=== PATIENT | male | born 1955 | race Caucasian/White ===

== ENCOUNTER 2021-12-13 11:41 | Inpatient (IN) | payer BC, OTHER ==
[2021-12-13] VITALS (40 sets, daily range): BP systolic 83–151; BP diastolic 46–97
[~2021-12-13] VITALS: Ht 182.9 cm; Wt 94.5 kg
[2021-12-13] MEDS ORDERED: NS 100ML 100 ML IV ONE (11:45)
[2021-12-13] MEDS ORDERED: ANCEF ONE (11:45)
[2021-12-13] MEDS ORDERED: HEPARIN ONE (11:52)
[2021-12-13] MEDS ORDERED: PLAVIX ONE (12:07)
[2021-12-13] MEDS ORDERED: VERSED ONE (12:16)
[2021-12-13] MEDS ORDERED: SUBLIMAZE ONE (12:16)
[2021-12-13] MEDS ORDERED: XYLOCAINE ONE (12:16)
--- NOTE | 2021-12-13 12:40 | NUR ---
ARRIVAL PATIENT ARRIVED ON UNIT VIA STRETCHER. RECEIVED REPORT FROM JOSE ROSA. ASSUME CARE AT THIS TIME
[2021-12-13 15:01] LABS: BASOPHIL % 0.2 % (0.0-0.2); LYMPHOCYTES # 0.83 10^3/uL1 (1.0-4.8); LYMPHOCYTES % 7.7 % (24.0-44.0); MEAN CORP HGB 28.8 pg (26-34); MONOCYTES # 0.1 10^3/uL (0.3-0.8); NEUTROPHIL # 9.8 10^3/uL (1.8-7.7); PLATELET COUNT 269 10^3/uL (150-400)
--- NOTE | 2021-12-13 15:02 | PCM.ECHO ---
APPROVED REPORT EXAM: Comprehensive 2D, Doppler, and color-flow Echocardiogram. Patient Location: IN-PATIENT Indications STEMI 2D Dimensions LVOT Diameter 2.27 (1.8-2.4cm) LVEF(%) 68.50 (>50%) M-Mode Dimensions RVDd 0.85 (2.1-3.2cm) Left Atrium(MM) 4.30 (2.5-4.0cm) IVSd 1.10 (0.7-1.1cm) Aortic Root 2.60 (2.2-3.7cm) LVDd 5.90 (4.0-5.6cm) Aortic Cusp Exc 1.75 (1.5-2.0cm) PWd 0.85 (0.7-1.1cm) MV EPSS 1.00 (<0.5cm) IVSs 1.55 cm FS (%) 31.35 % LVDs 4.05 (2.0-3.8cm) ESV(Teich) 72.11 ml PWs 1.30 cm LVEF(%) 58.43 (>50%) Volumes Biplane 2D LV Volumes Biplane 2D LA Volumes LVEDv A4C 102.76 mL LA ESV Index LVESv A4C 32.37 mL Aortic Valve AoV Peak Henri. 0.95 m/s AoV VTI 20.65 cm AO Peak GR. 3.60 mmHg AO Mean GR. 2.10 mmHg LVOT VTI 22.72 cm LVOT Peak Henri. 0.77 m/s KVNG(VTI)/BSA 4.45 cm2/m2 KVNG (VTI) 4.45 cm2 Mitral Valve MV E Velocity 0.90m/s MR Peak Gr. 3.30mmHg MV A Velocity 0.95m/s TDI Lateral E' P. V 0.11m/s Medial E' P. V 0.10m/s Pulmonary Valve PV Peak Velocity 0.60m/s PV Peak Grad. 1.55mmHg RVOT VTI 18.10cm Tricuspid Valve TR P. Velocity 2.15m/s RAP ESTIMATE 10.00mmHg TR Peak Gr. 19.15mmHg RVSP 29.15mmHg LEFT VENTRICLE The left ventricle is normal size. The left ventricular systolic function is normal. The left ventricular ejection fraction is within the normal range. There is normal left ventricular wall thickness. There is normal LV segmental wall motion. There is no ventricular septal defect visualized. No left ventricle thrombus noted on this study. LVEF is 60-65%. RIGHT VENTRICLE The right ventricle is normal size. The right ventricular systolic function is normal. There is normal right ventricular wall thickness. ATRIA The left atrium size is normal. The right atrium size is normal. The interatrial septum is intact with no evidence for an atrial septal defect. AORTIC VALVE The aortic valve is normal in structure. There is no aortic valvular stenosis. No aortic regurgitation is present. There is no aortic valvular vegetation. MITRAL VALVE The mitral valve is normal in structure. There is no mitral valve stenosis. Mild mitral regurgitation. There is no evidence of mitral valve vegetations. TRICUSPID VALVE The tricuspid valve is normal in structure. There is no tricuspid valve stenosis. Moderate tricuspid regurgitation. There is no tricuspid valve vegetations. PULMONIC VALVE The pulmonary valve is normal in structure. There is no pulmonic valvular stenosis. There is no pulmonic valvular regurgitation. There is no pulmonic valve vegetations. GREAT VESSELS The aortic root is normal in size. Pulmonary artery is not well visualized. Aortic arch is not well visualized. IVC is not well visualized. PERICARDIUM There is no pericardial effusion. There is no pleural effusion. Other Information Study Quality: Fair <Conclusion> The left ventricular systolic function is normal. LVEF is 60-65%. Mild mitral regurgitation. Moderate tricuspid regurgitation. Electronically signed by : TRUONG RUBY. 12/13/2021 15:02:16
--- NOTE | 2021-12-13 15:09 | HPH ---
ADMIT DATE: 12/13/2021 DICTATOR NAME: TRUONG RUBY DO ICU ADMISSION HISTORY AND PHYSICAL CHIEF COMPLAINT: Acute ST elevation myocardial infarction involving the inferior wall. HISTORY OF PRESENT ILLNESS: This is a 66-year-old male who initially presented at [facility] in [place] with symptoms of chest discomfort. EKG done at the outside hospital showed acute ST elevation myocardial infarction involving the inferior wall with reciprocal ST depressions in the high lateral leads. A diagnosis of acute STEMI was made and the patient was transferred over to [facility] for emergent left heart catheterization. Loading dose of aspirin as well as heparin was given to the patient. The patient was kept on heparin drip. The patient was also given thrombolytic therapy with TNKase. PAST MEDICAL HISTORY: Significant for known history of CAD, status post PCI 10 years ago. PAST SURGICAL HISTORY: 1. Cardiac catheterization done 10 years ago with PCI to an unknown vessel. 2. Bilateral knee surgery. ALLERGIES: He is allergic to IODINE. MEDICATIONS: He takes at home, citalopram. SOCIAL HISTORY: He denies tobacco use, denies illicit drug use, denies alcohol use. FAMILY HISTORY: Admits to family history of premature coronary artery disease, but denies sudden cardiac . REVIEW OF SYSTEMS: As per HPI and as per previous records. All systems reviewed negative for interval change. PHYSICAL EXAMINATION: VITAL SIGNS: Blood pressure is 148/78, respiratory rate is 16, heart rate is 72, pulse oximetry is 96% on room air. GENERAL: He is in no apparent distress, alert and oriented x 3. HEENT: Normocephalic, atraumatic. Extraocular muscles intact. Pupils equally round, reactive to light and accommodation. CARDIAC: S1, S2. No gallops, murmurs, rubs, or clicks. LUNGS: Clear to auscultation bilaterally. No wheezing, rhonchi or rales. ABDOMEN: Soft, nontender, nondistended. Positive bowel sounds in all 4 quadrants. EXTREMITIES: No cyanosis, no clubbing, no edema, +2 pedal pulses palpable bilaterally. NEUROLOGIC: No neurological deficits. Sensation is intact. IMPRESSION: 1. Acute ST elevation myocardial infarction involving the inferior wall with reciprocal ST depressions in the high lateral leads. 2. Known history of coronary artery disease, status post PCI done 10 years ago to an unknown vessel. 3. Family history of premature coronary artery disease. RECOMMENDATIONS: This is a 66-year-old male who was transferred from [facility] with an acute ST elevation myocardial infarction. He was given TNKase thrombolytic therapy as well as loading dose of aspirin and heparin. He is currently on heparin drip. He will be taken to the cardiac catheterization lab for emergent left heart catheterization. Further recommendations will be made based on his overall clinical course. Edison STARKS D.O. DR: FAM TID: [id number] RECEIPT: [id number] MTDD
[2021-12-13 15:28] LABS: CARBON DIOXIDE 21.5 mmol/L (20.0-32)
[2021-12-13] MEDS ORDERED: ESCI10TA10 PO (15:29)
--- NOTE | 2021-12-13 15:29 | CCRH ---
DATE OF SERVICE: 12/13/2021 DICTATOR NAME: TRUONG RUBY DO INDICATIONS: Acute ST elevation myocardial infarction. This is a 66-year-old male who presented to an outside hospital with an acute ST elevation myocardial infarction. He was then transferred emergently to [facility] for emergent left heart catheterization. PROCEDURES PERFORMED: 1. Acute thrombotic occlusion (99%) of the distal left circumflex artery, status post successful percutaneous coronary intervention with a Resolute [place] 2.75 x 18 mm drug-eluting stent. 2. 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 3. Percutaneous transluminal coronary angioplasty of the left circumflex artery using a Euphora 2.0 x 12 mm balloon. 4. Selective coronary angiography. 5. Left ventriculography. 6. Hemostasis established using a 6-Ugandan Angio-Seal. DESCRIPTION OF PROCEDURE: Access was obtained using a 4-Ugandan micropuncture kit to cannulate the right common femoral artery. The 4-Ugandan sheath was then upsized to a 6-Ugandan regular short sheath. Diagnostic angiography was then carried out using the Loretta right guide catheter to engage the RCA. The RCA was noted to be angiographically normal. It bifurcates into a small caliber right posterolateral artery and a medium sized caliber right posterior descending artery. Both vessels are noted to have mild luminal irregularities. The Loretta right catheter was then exchanged for a Loretta left catheter, which was used to engage the left main. Angiography revealed that the left main was normal. It bifurcates into the left anterior descending artery and the left circumflex artery. The left anterior descending artery is noted to have mild luminal irregularities. It runs in the intraventricular groove to the apex to form a type 2 LAD. It gives rise to 3 diagonal branches that are all noted to have mild luminal irregularities. The left circumflex artery is noted to have an acute thrombotic occlusion (99%) of the distal left circumflex artery. This appears to be an in-stent restenotic occlusion. The proximal segment also has an 80% stenosis. The left circumflex is noted to be codominant and gives rise to 3 obtuse marginal branches that are noted to have mild luminal irregularities. The Loretta left catheter was exchanged for an EBU 3.5 guide catheter, which was used to engage the left main. A Runthrough wire was then introduced into the left circumflex artery crossing the lesion in the distal left circumflex artery into the obtuse marginal branch. The thrombotic lesion was then predilated using the Euphora 2.0 x 12 mm compliant balloon. This was then followed by deployment of a Resolute Yoel 2.75 x 18 mm drug-eluting stent. The stent was noted to be well opposed to the wall of the vessel. The proximal lesion was then treated using a Resolute Yoel 3.0 x 12 mm drug-eluting stent. Both stents were postdilated using a 3.0 x 15 mm noncompliant balloon. Following post-dilation, both stents were noted to be well opposed to the wall of the vessel with 0% residual stenosis. PAMELA 3 flow was maintained in the left circumflex artery. The wire and the guide were subsequently removed. A pigtail catheter was then introduced and used to cross the aortic valve into the left ventricle. Left ventriculography was performed. LVEF was noted to be 55%. LVEDP was noted to be 12. Upon pullback of the pigtail catheter, there was no gradient across the aortic valve. The pigtail catheter was then taken out and hemostasis was established using a 6-Ugandan Angio-Seal. 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 There were no complications. IMPRESSION: 1. Acute thrombotic occlusion (99%) of the distal left circumflex artery, status post successful percutaneous coronary intervention with a drug-eluting stent. 2. Severe stenosis (80%) of the proximal left circumflex artery, status post successful percutaneous coronary intervention with a drug-eluting stent. 3. Percutaneous transluminal coronary angioplasty of the left circumflex artery. 4. Selective coronary angiography. 5. Left ventriculography. 6. Left ventricular ejection fraction of 55%. 7. Left ventricular end-diastolic pressure of 12. 8. Hemostasis established using a 6-Ugandan Angio-Seal. RECOMMENDATIONS: The patient will be started on dual antiplatelet therapy as well as statin therapy. A 2D echo will be obtained to reevaluate his left ventricular ejection fraction and structural integrity of his heart. He will be kept in the hospital for anticipated discharge in the next 48 hours. He has been instructed to follow up with his primary rodeo clown within 1 week of discharge. Edison STARKS D.O. DR: FAM TIRafita: [id number] RECEIPT: [id number]
[2021-12-13] MEDS: LIPITOR PO SCH (20:43)
[2021-12-14] VITALS (36 sets, daily range): BP systolic 95–118; BP diastolic 43–73
[2021-12-14] MEDS: TOPROL XL PO SCH (08:06)
[2021-12-14] MEDS: ASPIRIN EC PO SCH (08:06)
[2021-12-14] MEDS: PLAVIX PO SCH (08:06)
--- NOTE | 2021-12-14 11:55 | NUR ---
Transfer Transferred from ICU to Med Surg room 331 via wheel chair. Transferred from wheel chair to bed without assistance and without difficulty. Report given to Antonia HOUSER to assume care.
--- NOTE | 2021-12-14 12:05 | NUR ---
UPON PT, NO ACUTE DISTRESS NOTED AT THIS TIME, REPORT RECEIVED FROM CORRINA PICHARDO. WILL CONTINUE PLAN OF CARE.
--- NOTE | 2021-12-14 19:17 | PRM.PN ---
Subjective Subjective Date: Dec 14, 2021 Time: 11:00 Subjective Patient resting comfortably No chest pain, SOB or palpitations Review of Systems Constitutional: No: Fever, Chills, Sweats, Weakness, Malaise, Other Eyes: No: Pain, Vision change, Conjunctivae inflammation, Eyelid inflammation, Other, Redness ENT: No: Ear pain, Ear discharge, Nose pain, Nose discharge, Nose congestion, Mouth pain, Mouth swelling, Throat pain, Throat swelling, Other Respiratory: No: Cough, Dry, Shortness of breath, SOB with excertion, Wheezing, Hemoptysis, Pleuritic Pain, Sputum, Wheezing, Other Cardiovascular: No: Chest Pain, Palpitations, Orthopnea, Paroxysmal Noc. Dyspnea, Edema, Lt Headedness, Other Gastrointestinal: No: Nausea, Vomiting, Abdominal Pain, Diarrhea, Constipation, Melena, Hematochezia, Other Musculoskeletal: No: other, neck pain, shoulder pain, arm pain, back pain, hand pain, leg pain, foot pain Neurological: No: Weakness, Numbness, Incoordination, Change in speech, Confusion, Seizures, Other Allergies: Coded Allergies: Iodinated Contrast Media (Verified Allergy, Unknown, 12/13/21) Scheduled Escitalopram Oxalate (Lexapro), 1 TAB PO DAILY, (Reported) Objective Vitals and I/O Vital Sign - Last 24 Hours 12/13/21 12/13/21 12/13/21 12/13/21 19:15 19:30 19:35 19:45 Pulse 88 87 82 Resp 16 10 18 B/P (MAP) 141/89 (106) 141/82 (101) 126/82 (97) Pulse Ox 94 94 94 O2 Delivery Room Air* Room Air* Room Air Room Air* O2 Flow Rate 0 0 0 FiO2 12/13/21 12/13/21 12/13/21 12/13/21 20:00 20:15 20:30 20:45 Pulse 78 78 81 95 Resp 18 17 20 16 B/P (MAP) 117/81 (93) 124/78 (93) 126/78 (94) 134/86 (102) Pulse Ox 92 90 91 92 O2 Delivery Room Air* Room Air* Room Air* Room Air* O2 Flow Rate 0 0 0 0 FiO2 12/13/21 12/13/21 12/13/21 12/13/21 21:00 21:15 21:30 21:45 Pulse 84 81 89 79 Resp 18 16 22 18 B/P (MAP) 151/95 (113) 147/91 (109) 134/85 (101) Pulse Ox 97 97 95 93 O2 Delivery Room Air* Room Air* Room Air* Room Air* O2 Flow Rate 0 0 0 0 FiO2 21 21 21 12/13/21 12/13/21 12/13/21 12/13/21 21:46 22:00 22:15 22:30 Pulse 85 76 78 75 Resp 20 18 17 15 B/P (MAP) 135/78 (97) 125/69 (87) 113/67 (82) Pulse Ox 92 92 90 92 O2 Delivery Room Air* Room Air* Room Air* Room Air* O2 Flow Rate 0 0 0 0 FiO2 12/13/21 12/13/21 12/13/21 12/13/21 22:45 23:00 23:15 23:30 Pulse 74 76 70 75 Resp 16 16 15 19 B/P (MAP) 106/79 (88) 107/62 (77) Pulse Ox 92 91 92 91 O2 Delivery Room Air* Room Air* Room Air* Room Air* O2 Flow Rate 0 0 0 0 FiO2 12/13/21 12/14/21 12/14/21 12/14/21 23:45 00:00 00:00 00:15 Temp 98.1 Pulse 73 70 66 Resp 16 17 16 B/P (MAP) 117/59 (78) Pulse Ox 93 92 90 O2 Delivery Room Air* Room Air* Room Air Room Air* O2 Flow Rate 0 0 0 FiO2 12/14/21 12/14/21 12/14/21 12/14/21 00:30 00:45 01:00 01:15 Pulse 67 65 68 65 Resp 14 15 16 15 B/P (MAP) 109/64 (79) 100/61 (74) Pulse Ox 93 93 92 92 O2 Delivery Room Air* Room Air* Room Air* Room Air* O2 Flow Rate 0 0 0 0 FiO2 21 21 21 12/14/21 12/14/21 12/14/21 12/14/21 01:30 01:45 02:00 02:15 Pulse 66 63 93 61 Resp 15 15 31 14 B/P (MAP) 98/62 (74) 111/61 (78) Pulse Ox 92 92 90 92 O2 Delivery Room Air* Room Air* Room Air* Room Air* O2 Flow Rate 0 0 0 0 FiO2 21 21 21 12/14/21 12/14/21 12/14/21 12/14/21 02:30 02:45 03:00 03:15 Pulse 62 59 60 58 Resp 14 14 15 13 B/P (MAP) 98/60 (73) 102/55 (71) Pulse Ox 91 94 94 96 O2 Delivery Room Air* Room Air* Room Air* Room Air* O2 Flow Rate 0 0 0 0 FiO2 21 21 12/14/21 12/14/21 12/14/21 12/14/21 03:30 03:45 04:00 04:00 Temp 98.1 Pulse 60 60 77 Resp 14 13 17 B/P (MAP) 95/43 (60) 111/59 (76) Pulse Ox 91 93 93 O2 Delivery Room Air* Room Air* Room Air* Room Air O2 Flow Rate 0 0 0 FiO2 12/14/21 12/14/21 12/14/21 12/14/21 04:15 04:30 04:45 05:00 Pulse 68 63 63 69 Resp 16 15 12 14 B/P (MAP) 113/66 (82) 118/73 (88) Pulse Ox 95 94 97 97 O2 Delivery Room Air* Room Air* Room Air* Room Air* O2 Flow Rate 0 0 0 0 FiO2 12/14/21 12/14/21 12/14/21 12/14/21 05:15 05:30 05:45 06:00 Pulse 66 68 69 64 Resp 18 19 15 16 B/P (MAP) 117/70 (86) 110/69 (83) Pulse Ox 95 93 93 92 O2 Delivery Room Air* Room Air* Room Air* Room Air* O2 Flow Rate 0 0 0 0 FiO2 21 21 21 12/14/21 12/14/21 12/14/21 12/14/21 06:15 06:30 06:45 07:00 Pulse 64 60 63 60 Resp 14 16 18 15 B/P (MAP) 97/58 (71) 104/59 (74) 98/58 (71) Pulse Ox 93 91 93 94 O2 Delivery Room Air* Room Air* Room Air* Room Air* O2 Flow Rate 0 0 0 0 FiO2 21 21 21 21 12/14/21 12/14/21 12/14/21 12/14/21 07:15 07:16 07:30 07:45 Pulse 72 68 71 69 Resp 19 13 19 19 B/P (MAP) 111/64 (80) 106/56 (73) Pulse Ox 93 97 94 92 O2 Delivery Room Air* Room Air* Room Air* Room Air* O2 Flow Rate 0 0 0 0 FiO2 21 21 12/14/21 12/14/21 12/14/21 12/14/21 07:47 08:00 08:00 08:15 Pulse 73 92 82 Resp 12 16 20 B/P (MAP) 116/70 (85) 115/64 (81) Pulse Ox 93 95 91 O2 Delivery Room Air* Room Air Room Air* Room Air* O2 Flow Rate 0 0 0 FiO2 12/14/21 12/14/21 12/14/21 12/14/21 08:30 08:31 08:45 09:00 Pulse 84 84 76 76 Resp 15 21 18 23 B/P (MAP) 99/71 (80) 110/70 (83) 101/65 (77) Pulse Ox 93 94 94 94 O2 Delivery Room Air* Room Air* Room Air* Room Air* O2 Flow Rate 0 0 0 0 FiO2 12/14/21 12/14/21 12/14/21 12/14/21 09:15 09:30 09:45 10:00 Pulse 75 69 76 74 Resp 17 19 19 15 B/P (MAP) 100/60 (73) 102/63 (76) 100/61 (74) Pulse Ox 92 94 93 95 O2 Delivery Room Air* Room Air* Room Air* Room Air* O2 Flow Rate 0 0 0 0 FiO2 21 21 12/14/21 12/14/21 12/14/21 12/14/21 10:01 10:15 10:16 10:30 Pulse 73 86 73 66 Resp 20 19 16 18 B/P (MAP) 100/52 (68) 104/54 (71) 107/49 (68) Pulse Ox 96 94 96 96 O2 Delivery Room Air* Room Air* Room Air* Room Air* O2 Flow Rate 0 0 0 0 FiO2 21 21 21 12/14/21 12/14/21 12/14/21 12/14/21 10:45 11:00 11:15 11:30 Pulse 60 59 57 59 Resp 17 14 15 16 B/P (MAP) 96/52 (67) 98/56 (70) 98/53 (68) 101/57 (72) Pulse Ox 95 93 94 94 O2 Delivery Room Air* Room Air* Room Air* Room Air* O2 Flow Rate 0 0 0 0 FiO2 21 21 21 21 12/14/21 12/14/21 12/14/21 12/14/21 11:45 11:47 16:21 18:12 Temp 98.4 Pulse 59 67 Resp 16 18 B/P (MAP) 98/56 (70) 118/67 (84) Pulse Ox 95 96 O2 Delivery Room Air* Room Air Room Air Room Air* O2 Flow Rate 0 0 FiO2 Intake and Output 12/14/21 07:00 Intake Total 1791 ml Output Total 2950 ml Balance -1159 ml General: Alert, Oriented X3, Cooperative HEENT: Atraumatic, PERRLA, EOMI Neck: Supple, No JVD, No thyromegaly Lungs: Clear to auscultation, Normal air movement Heart: Regular rate, Normal S1, Normal S2 Abdomen: Normal bowel sounds, Soft, No tenderness Extremities: No clubbing, No cyanosis, No edema Neuro: Normal gait, Normal speech, Strength at 5/5 X4 ext All Results(Lab/Rad) Laboratory Tests Test 12/14/21 10:38 Magnesium Level 2.1 mg/dL Current Medications Medications (Trade) Dose Ordered Sig/Galina Route PRN Reason Start Time Stop Time Status Last Admin Dose Admin Cefazolin Sodium (Ancef) 1 gm STK-MED ONCE .ROUTE 12/13/21 11:45 12/13/21 11:46 DC Sodium Chloride 100 ml @ ud STK-MED ONCE IV 12/13/21 11:45 12/13/21 11:46 DC Heparin Sodium (Porcine) (Heparin) 5,000 unit STK-MED ONCE .ROUTE 12/13/21 11:52 12/13/21 11:52 DC Clopidogrel Bisulfate (Plavix) 300 mg STK-MED ONCE .ROUTE 12/13/21 12:07 12/13/21 12:07 DC Heparin Sodium/ Sodium Chloride 1,500 ml @ ud STK-MED ONCE IV 12/13/21 12:15 12/13/21 12:16 DC Fentanyl Citrate (Sublimaze) 50 mcg STK-MED ONCE .ROUTE 12/13/21 12:16 12/13/21 12:16 DC Lidocaine HCl (Xylocaine) 20 mg STK-MED ONCE .ROUTE 12/13/21 12:16 12/13/21 12:16 DC Aspirin (Aspirin Ec) 81 mg DAILY PO 12/14/21 09:00 01/13/22 08:59 12/14/21 08:06 Clopidogrel Bisulfate (Plavix) 75 mg DAILY PO 12/14/21 09:00 01/13/22 08:59 12/14/21 08:06 Atorvastatin Calcium (Lipitor) 40 mg HS PO 12/13/21 21:00 01/12/22 20:59 12/13/21 20:43 Metoprolol Succinate (Toprol Xl) 25 mg DAILY PO 12/14/21 09:00 01/13/22 08:59 12/14/21 08:06 Assessment/Plan Assessment/Plan Assessment/Plan 1. Acute ST elevation myocardial infarction involving the inferior wall with reciprocal ST depressions in the high lateral leads. 2. Known history of coronary artery disease, status post PCI done 10 years ago to an unknown vessel. 3. Family history of premature coronary artery disease. Emergent C yesterday: 1. Acute thrombotic occlusion (99%) of the distal left circumflex artery, status post successful percutaneous coronary intervention with a Resolute [place] 2.75 x 18 mm drug-eluting stent. 2. Severe stenosis (80%) of the proximal left circumflex artery in-stent restenosis, status post successful percutaneous coronary intervention with a Resolute [place] 3.0 x 12 mm drug-eluting stent. 3. Percutaneous transluminal coronary angioplasty of the left circumflex artery using a Euphora 2.0 x 12 mm balloon. 4. Selective coronary angiography. 5. Left ventriculography. 6. Hemostasis established using a 6-Iraqi Angio-Seal. Continue DAPT/statin/BB Transfer to [facility] LVEF 60-65% on 2D echo Plan for discharge in TRUONG MACDONALD DO Dec 14, 2021 19:17
[2021-12-14] MEDS: LIPITOR PO SCH (21:40)
[2021-12-15 00:40] VITALS: BP 116/71
[2021-12-15 04:51] VITALS: BP 120/70
[2021-12-15 08:00] VITALS: BP 117/77
[2021-12-15] MEDS: ASPIRIN EC PO SCH (09:15)
[2021-12-15] MEDS: TOPROL XL PO SCH (09:15)
[2021-12-15] MEDS: PLAVIX PO SCH (09:15)
--- NOTE | 2021-12-15 09:59 | NUR ---
DISCHARGE PLAN CM VISITED WITH PATIENT AND HIS SPOUSE REGARDING DISCHARGE PLAN. PATIENT LIVES AT HOME WITH HIS SPOUSE IN [facility]. HE IS VERY IND OF AD[employer] AND WORKS DAILY. HIS PCP IS WILL CONKLIN IN [place] AND TOLL LINEMAN IS DR JOYA IN [place]. PATIENT DOES NOT USE DME AT HOME. DENIED NEED OF EDUCATION ON ADDITIONAL RESOURCES. CM EDUCATED ON IMPORTANCE OF FOLLOWING UP WITH TOLL LINEMAN IN 7-10 DAY. CM OFFERED TO SCHEDULE FOLLOW UP AND PATIENT SPOUSE WILL SCHEDULE THE FOLLOW UP APPOINTMENT. DISCAHRGE PLAN IS FOR PATIENT TO D/C BACK HOME TO ROUTINE CARE WITH HIS SPOUSE AND FOLLOW UP WITH TOLL LINEMAN IN 7-10 DAYS.
[2021-12-15 12:15] VITALS: BP 119/77
[2021-12-15] MEDS ORDERED: CLOP75TA PO (12:43)
[2021-12-15] MEDS ORDERED: ASPI-929 PO (12:43)
[2021-12-15] MEDS ORDERED: ATOR40TA PO (12:43)
[2021-12-15] MEDS ORDERED: Metoprolol Succinate PO (12:43)
--- NOTE | 2021-12-15 12:47 | PRM.DC ---
Discharge Summary Date of Discharge: Dec 15, 2021 Time of Request to Discharge: 12:44 Hospital Course This is a 66-year-old male who presented to an outside hospital with an acute ST elevation myocardial infarction. He was then transferred emergently to [facility] for emergent left heart catheterization. 1. Acute ST elevation myocardial infarction involving the inferior wall with reciprocal ST depressions in the high lateral leads. 2. Known history of coronary artery disease, status post PCI done 10 years ago to an unknown vessel. 3. Family history of premature coronary artery disease. Emergent C yesterday: 1. Acute thrombotic occlusion (99%) of the distal left circumflex artery, status post successful percutaneous coronary intervention with a Resolute Yoel 2.75 x 18 mm drug-eluting stent. 2. 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 3. Percutaneous transluminal coronary angioplasty of the left circumflex artery using a Euphora 2.0 x 12 mm balloon. 4. Selective coronary angiography. 5. Left ventriculography. 6. Hemostasis established using a 6-Kazakh Angio-Seal. LVEF 60-65% on 2D echo He will be discharged home today on DAPT/statin/BB. He will follow up with his primary manager database administration in 1week. General: Alert, Oriented X3, Cooperative HEENT: Atraumatic, PERRLA, EOMI Neck: Supple, No JVD, No thyromegaly Lungs: Clear to auscultation, Normal air movement Heart: Regular rate, Normal S1, Normal S2 Abdomen: Normal bowel sounds, Soft, No tenderness Extremities: No clubbing, No cyanosis, No edema Neuro: Normal gait, Normal speech, Strength at 5/5 X4 ext Scheduled Aspirin (Aspirin Ec), 81 MG PO DAILY Atorvastatin 40MG (Lipitor 40MG), 40 MG PO HS Clopidogrel Bisulfate (Clopidogrel), 75 MG PO DAILY Escitalopram Oxalate (Lexapro), 1 TAB PO DAILY, (Reported) [Metoprolol Succinate], 25 MG PO DAILY Sepsis Evaluation @ Discharge 12/15/21 07:42 Review of Systems Constitutional: denies no symptoms reported, denies see HPI, denies chills, denies diaphoresis, denies fever, denies malaise, denies weakness, denies other EENTM: denies no symptoms reported, denies see HPI, denies eye pain, denies blurred vision, denies tearing, denies double vision, denies ear pain, denies ear discharge, denies nose pain, denies nose congestion, denies throat pain, denies throat swelling, denies mouth pain, denies mouth swelling, denies other Respiratory: denies no symptoms reported, denies see HPI, denies cough, denies orthopnea, denies shortness of breath, denies stridor, denies wheezing, denies other Cardiovascular: denies no symptoms reported, denies see HPI, denies chest pain, denies edema, denies palpitations, denies syncope, denies other Gastrointestinal: denies no symptoms reported, denies see HPI, denies abdominal pain, denies constipation, denies diarrhea, denies nausea, denies vomiting, denies other Musculoskeletal: denies no symptoms reported, denies see HPI, denies back pain, denies gout, denies joint pain, denies joint swelling, denies muscle pain, denies muscle stiffness, denies neck pain, denies other Skin: denies no symptoms reported, denies see HPI, denies change in color, denies change in hair/nails, denies dryness, denies lesions, denies lumps, denies rash, denies other TRUONG RUBY DO Dec 15, 2021 12:47
[2021-12-15 13:04] VITALS: BP 119/77
--- NOTE | 2021-12-15 13:35 | NUR ---
DISCHARGE PATIENT BEING DISCHARGED HOME AT THIS TIME IN STABLE CONDITION. PATIENT DENIES ANY ADDITIONAL RESOURCES AT THIS TIME. RELINQUISHED CARE FOR PATIENT AT THIS TIME.
== END 2021-12-15 13:38 | disposition home or self-care (01) | DRG 246 ==
LOC: ICU 11:41 → MS 12-14 11:55
PROVIDERS: ADMIT Internal Medicine Interventional Cardiology; ATTEND Internal Medicine Interventional Cardiology
PROC: 0270356 Dilation of Coronary Artery, One Artery, Bifurcation, with Two Drug-eluting Intraluminal Devices, Percutaneous Approach (ICD-10-PCS; 2021-12-13)
PROC: B2151ZZ Fluoroscopy of Left Heart using Low Osmolar Contrast (ICD-10-PCS; 2021-12-13)
PROC: 4A023N7 Measurement of Cardiac Sampling and Pressure, Left Heart, Percutaneous Approach (ICD-10-PCS; 2021-12-13)
PROC: B2111ZZ Fluoroscopy of Multiple Coronary Arteries using Low Osmolar Contrast (ICD-10-PCS; principal; 2021-12-13 11:30)
DX: T82.855A Stenosis of coronary artery stent, initial encounter (principal); I21.3 ST elevation (STEMI) myocardial infarction of unspecified site; I25.10 Atherosclerotic heart disease of native coronary artery without angina pectoris; Z82.49 Family history of ischemic heart disease and other diseases of the circulatory system; Y83.8 Other surgical procedures as the cause of abnormal reaction of the patient, or of later complication, without mention of misadventure at the time of the procedure; Y92.89 Other specified places as the place of occurrence of the external cause
CPT/HCPCS: 36415; 80053; 83735; 85025; 85610; 93306; 93458; 99152; C1760; C1769; C1894; C9600; G0378; J0690; J1644; J2250; J3010; Q9967